=== PATIENT | male | born 1950 | race Hispanic/Latino ===

== ENCOUNTER 2024-04-29 08:20 | Observation (INO) | payer OTHER ==
[2024-04-25 12:24] VITALS: BP 115/59; PULSE 64; RESP 18; TEMP 97.4
[2024-04-25 12:34] LABS: BASOPHILS # (AUTO) 0.06 K/uL (0.00-0.20); BASOPHILS % (AUTO) 0.7 % (0.0-5.0); EOSINOPHILS # (AUTO) 0.28 K/uL (0.00-0.70); EOSINOPHILS % (AUTO) 3.4 % (0.0-8.0); HEMATOCRIT 36.6 % (42-54); IMMATURE GRANULOCYTE ABSOLUTE 0.05 K/uL (0-1); LYMPHOCYTES # (AUTO) 1.3 K/uL (1.0-4.8); MEAN CORPUSCULAR HEMOGLOBIN 30.3 pg (27.0-33.0); MEAN CORPUSCULAR HGB CONC 33.1 g/dL (32.0-36.0); MEAN CORPUSCULAR VOLUME 91.7 fL (79-99); MONOCYTES # (AUTO) 0.7 K/uL (0.1-1.0); MONOCYTES % (AUTO) 8.2 % (3.0-13.0); NEUTROPHILS % (AUTO) 72.1 % (40.0-77.0); PLATELET COUNT (AUTO) 243 K/uL (130-400); RED BLOOD CELL COUNT(AUTO) 3.99 MIL/uL (4.50-6.20); WHITE BLOOD COUNT (AUTO) 8.3 K/uL (4.8-10.8)
[2024-04-25 12:39] LABS: APPEARANCE,URINE CLEAR (CLEAR); BILIRUBIN,URINE NEGATIVE (NEGATIVE); COLOR,URINE LIGHT-YELLOW (YELLOW); GLUCOSE, URINE (UA) >=1000 mg/dL (NEGATIVE); KETONES,URINE NEGATIVE (NEGATIVE); LEUKOCYTE ESTERASE ,URINE NEGATIVE Leu/uL (NEGATIVE); NITRATE,URINE NEGATIVE (NEGATIVE); OCCULT BLOOD,URINE NEGATIVE (NEGATIVE); PH,URINE 5.5 (5.0-8.0); PROTEIN,URINE NEGATIVE (NEGATIVE); UROBILINOGEN,URINE 0.2 mg/dL (0.2-1.0)
[2024-04-25 12:40] LABS: ADD UA MICROSCOPIC YES
[2024-04-25 12:46] LABS: ALBUMIN 3.5 g/dL (3.5-5.0); CREATININE 1.8 mg/dL (0.5-1.3); POTASSIUM 4.3 mmol/L (3.5-5.1); RBC,URINE 0-1 /HPF (0-1); WBC,URINE 0-1 /HPF (0-1)
[~2024-04-29] VITALS: Ht 165.1 cm; Wt 77.7 kg
[2024-04-29] VITALS (24 sets, daily range): BP systolic 121–141; BP diastolic 54–69; PULSE 56–78; RESP 16–20; TEMP 96.6–97.6
[~2024-04-29 08:20] MED LIST: ATEN50TA PO; ATOR40TA71 PO; CLOP75TA32 PO; ENAL-89 PO; FAMO20TA8 PO; FERS325 PO; GLIP10TA19 PO; Nephro-Vite PO; PIOG30TA70 PO; SEMA1PEN3 SQ; STEGLATRO PO; VIT D3 PO
[2024-04-29] MEDS: 0.9%NACL 1000ML 1,000 ML IV ONE (09:13)
[2024-04-29] MEDS: ceFAZolin SODIUM 2 GM VIAL ONE (09:13)
[2024-04-29] MEDS ORDERED: rocuRONium bROMide 10MG/1ML 5ML VL ONE ×2 (10:31→13:28)
[2024-04-29] MEDS ORDERED: FENTanyl CITRate PF 50 MCG/1 ML 2ML VIAL ONE (10:31)
[2024-04-29] MEDS ORDERED: proPOFol 10 MG/ML 20ML VIAL IV ONE (10:31)
[2024-04-29] MEDS ORDERED: LIDOCAINE HCL-MPF 2% 10ML AMP IJ ONE (10:31)
[2024-04-29] MEDS ORDERED: ROPivacaine 0.5% 5MG/ML 30ML ONE (10:33)
[2024-04-29] MEDS ORDERED: ketaMINE 50MG/ML SYRINGE 50 MG/ML DISP.SYRIN ONE (10:33)
--- NOTE | 2024-04-29 10:47 | EKG ---
[facility] Test Date: 2024-04-29 Test Time: 10:18:28 Pat Name: ASHLEY MENDOZA Department: [facility] Room: 401 Gender: M Fuse Spooler: [id number] : 1950 Requested By: JAIRON SHEPPARD Order Number: [id number] Reading MD: Jmibo Ortiz Measurements Intervals [place] Rate: 54 P: 43 AK: 144 QRS: -8 QRSD: 97 T: 123 QT: 450 QTc: 426 Interpretive Statements Sinus rhythm Abnrm T, consider ischemia, anterolateral lds No previous ECG available for comparison Electronically Signed On 04-29-2024 21:26:19 AUTOMATIC PRINT DEVELOPER by Jimbo Ortiz Please click the below link to view image of tracing.
[2024-04-29] MEDS: TRANEXAMIC ACID 1000MG/10ML ONE ×2 (11:45)
[2024-04-29] MEDS ORDERED: ondanSETRON 4MG INJ ONE (11:57)
[2024-04-29] MEDS ORDERED: dexaMETHasone SOD PHOSPHATE 10MG/ML 1ML VIAL ONE (11:58)
[2024-04-29] MEDS ORDERED: GLYCOPYRROLATE 0.2 MG/ML 5 ML VIAL ONE (12:01)
[2024-04-29] MEDS ORDERED: NEOSTIGMINE METHYLSULFATE 1MG/ML IV ONE (12:01)
[2024-04-29] MEDS ORDERED: ePHEDrine SULFate 50 MG/ML AMPULE ONE (12:03)
[2024-04-29] MEDS ORDERED: traMADol HCL 50 MG TABLET PO PRN (12:30)
[2024-04-29] MEDS ORDERED: PoTASSium chloRIDE 20MEQ/100ML 100 ML IV PRN (12:30)
[2024-04-29] MEDS ORDERED: CYCLOBENZAPRINE HCL 10 MG TABLET PO PRN (12:30)
[2024-04-29] MEDS ORDERED: PoTASSium chloRIDE 20MEQ ER 20 MEQ ERTAB PO PRN (12:30)
[2024-04-29] MEDS ORDERED: ondanSETRON 4MG INJ IVP PRN (12:30)
[2024-04-29] MEDS ORDERED: FE FUMARATE/FA/MV, MIN COMB#15 1 TAB PO PRN (12:30)
[2024-04-29] MEDS ORDERED: ketOROlac 15MG/ML VIAL (15MG/ML) IV SCH (12:30)
[2024-04-29] MEDS ORDERED: PoTASSium chl 10% ELIXIR 20MEQ 20 MEQ/15 ML UDCUP PO PRN (12:30)
[2024-04-29] MEDS ORDERED: CALCIUM CARB 500MG PO PRN (12:30)
--- NOTE | 2024-04-29 15:19 | OP ---
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 The patient was failing conservative management and was found on MRI to have a supraspinatus rotator cuff tear with atrophy of the muscles. After discussion the risk, benefits, and alternatives, the patient voluntarily agreed to undergo the aforem entioned procedure. DESCRIPTION OF PROCEDURE: Patient was properly identified in the preoperative holding area. Surgical site marking was verified and surgery consent reviewed. The patient was then taken to the operating room and placed in supine position on the OR table. After induction of general anesthesia, preoperative antibiotics were given, all bony prominences were well-padded as the patient was transitioned into beachchair positioning. The right upper extremity was then prepped and draped in usual sterile fashion. Surgical time out was done verifying correct surgery, side, site, and location to be performed. We then began the procedure by making approximately 12 cm long incision over the deltopectoral interval using a 10 blade. Hemostasis was performed using Bovie electrocautery. We then dissected through the subcutaneous tissues using the Metzenbaums to identify our deltopectoral interval. We then mobilized the cephalic vein laterally as we opened the interval. We then incised the clavipectoral fascia just lateral to the conjoined tendon and placed our retractor deep to this. We identified the long head of the biceps tendon and performed a tenotomy. We then began elevating the subscapularis off of its insertion on the humeral head using Bovie electrocautery. With external rotation we brought the humeral head into view and released the capsule at the inferior aspect of the head. We released a small portion of the pectoralis off of its insertion on the humerus to allow for better exposure. We then placed our retractors protecting soft tissue. At this point we began using the sounding instruments, hand reaming up to a size 16. We pinned the cutting guide off of the handle in 30 degrees of version and performed the humeral osteotomy. We then broached up to a size 14. The rongeur was used to clean up our cut. We placed a protective cap on the cut surface of the humerus and subluxated the humerus posteriorly. We then placed our retractors around the glenoid to provide adequate exposure of the glenoid. The labrum and long head biceps tendon were resected with Bovie electrocautery. We then used to the guide to insert our central guidepin ensuring we were far enough inferior on the glenoid face. Over the central guidepin we reamed with the all-in-one reamer for the central peg and the faceplate. We then used the retail gift card merchandising to clean up the remaining soft tissue and bone. We then thoroughly irrigated out the glenoid bone and impacted into position the glenoid baseplate. We then placed 1 compression screw and 3 locking screw in the baseplate. We noted using a freer elevator that the baseplate was appropriately seated. We elected to use a centered glenosphere. Glenosphere was then seated in standard fashion with the setscrew tightened. We then removed our retractors and dislocated the humerus once more. We remove the protective cap from the cut end of the humerus. With the stem in place, we judged the amount of space available for polyethylene and elected to decrease our stem size. We backed down to a size 12 x 32 allowing us to further sink the stem and elected to use a locking screw to stabilize. We used the saw to cut off the extra bone from sinking the stem and used the ronguer to clean up remaining bone. We then elected to trial with a size +3 polyethylene. With this in place, we reduced the humerus and noted good stable range of motion. We then dislocated the humerus and remove the trial components. We thoroughly irrigated out the bone. We seated the final stem implant, placed a locking screw through the jig, and trialed once more. The size +3 polyethylene was still appropriate so we opened the final polyethylene and implanted this in standard fashion. We then reduced the humerus once more and ensured appropriate range of motion and stability. We checked the position of the components under fluoroscopy and found him to be appropriate. We thoroughly irrigated out the wound. We then began loosely repairing the deltopectoral interval using #2 Ethibond. Subcutaneous tissue was approximated using 2-0 Vicryl. The skin was closed using a running subcuticular 3-0 Monocryl with Dermabond applied. An Optifoam dressing was applied once the Dermabond dried. The patient was then placed into a sling, awakened from anesthesia, and taken recovery room in stable condition. MURRAY MAGANA MD Apr 29, 2024 15:19
--- NOTE | 2024-04-29 16:23 | HMCIMG ---
SHOULDER LTD 1VW RT REASON: S/P SHOULDER SURGERY TECHNIQUE: Single AP view was performed. FINDINGS: There is a total reverse right shoulder joint prosthesis in place. There are surgical changes in the soft tissues. There is no evidence of complication. IMPRESSION: 1. Documentation of right total shoulder joint prosthesis placement.
[2024-04-29] MEDS: FAMOTIDINE 20MG VIAL IV ONE (17:36)
[2024-04-29] MEDS: acetaMINOPHEN 100 ML ONE (17:36)
[2024-04-29] MEDS: ceFAZolin SODIUM 1 GM VIAL IVP SCH (17:42)
[2024-04-29] MEDS: 0.9%NACL 1000ML 1,000 ML IV SCH (17:42)
[2024-04-29] MEDS: FERROUS SULFATE 325 MG TABLET.DR PO SCH (17:42)
[2024-04-29] MEDS: GABApentin 100 MG CAPSULE PO SCH (17:42)
[2024-04-29] MEDS: INSULIN humuLIN R 100 UNIT/ML 3ML SQ SCH (17:43)
[2024-04-29] MEDS: doCUSate SODIUM 100 MG CAP PO SCH (20:45)
[2024-04-30] VITALS (7 sets, daily range): BP systolic 129–144; BP diastolic 69–73; PULSE 67–71; RESP 18–22; TEMP 97.6–98.9; O2SAT 98–99
[2024-04-30 05:21] LABS: HEMATOCRIT 32.7 % (42-54); MEAN CORPUSCULAR HEMOGLOBIN 29.8 pg (27.0-33.0); MEAN CORPUSCULAR HGB CONC 32.4 g/dL (32.0-36.0); MEAN CORPUSCULAR VOLUME 91.9 fL (79-99); RED BLOOD CELL COUNT(AUTO) 3.56 MIL/uL (4.50-6.20); RED CELL DISTRIBUTION WIDTH 14.1 % (11.0-15.5); WHITE BLOOD COUNT (AUTO) 12.7 K/uL (4.8-10.8)
[2024-04-30 05:28] LABS: CREATININE 1.5 mg/dL (0.5-1.3); POTASSIUM 5.2 mmol/L (3.5-5.1)
[2024-04-30] MEDS: FAMOTIDINE 20MG TAB PO SCH (08:28)
[2024-04-30] MEDS: polyETHYLene GLYCol 3350 17 GM POWD.PACK PO SCH (08:28)
[2024-04-30] MEDS: ASPIRIN 325MG TAB PO SCH (08:29)
[2024-04-30] MEDS: GLIPIZIDE 10 MG PO SCH (08:29)
[2024-04-30] MEDS: PIOGLITAZONE 30MG TAB PO SCH (08:29)
[2024-04-30] MEDS: Vitamin B Complex/Vit C/Folic Acid PO SCH (08:30)
[2024-04-30] MEDS: atorVAStatin 40 MG TABLET PO SCH (08:30)
[2024-04-30] MEDS: HYDROcodone/APAP 5/325 1 TAB TABLET PO PRN (08:30)
[2024-04-30] MEDS: STEGLATRO 5 MG PO SCH (08:32)
--- NOTE | 2024-04-30 13:49 | HMCIMG ---
SHOULDER COMP 2+VWS RT REASON: RT reverse total shoulder arthroplasty TECHNIQUE: 6 surgical spot views were obtained. These document to right reverse total shoulder arthroplasty procedure. Fluoroscopy time was 8.7 seconds. IMPRESSION: 1. Documentation of right reverse total shoulder arthroplasty procedure.
--- NOTE | 2024-04-30 14:22 | NUR ---
[facility] CM MET WITH PT THIS MORNING, ASSESSMENT DONE. PATIENT IS INDEPENDENT PRIOR TO SURGERY, LIVES AT HOME ALONE. HAS OWN GLUCOMETER, TAKES PO MED FOR DM, USES [facility] MAIL RX, MEDS GETS DELIVERED AT HOME. FEELS SAFE TO GO BACK HOME, STILL DRIVE, FAMILY ABLE TO ASSIST WITH TRANSPORTATION AND NEEDS NECESSARY. DISCUSSED MD RECOMMENDATIONS FOR HOME W/HH, PT AGREEABLE, CONSENT SIGNED JARED FOR [facility]. [facility] HOME W/HH ONCE APPROVED. SENT ORDER, CLINICALS, PT TO [facility] VIA SECURE FAX AND EMAIL, CONFIRMATION RECEIVED. PENDING REP RESPONSE. PT PENDING APPROVAL. PRIMARY NURSE CRISTINA LESLIE. DR MAGANA UPDATED. CM TO CONTINUE TO FOLLOW UP. Addendum: 04/30/24 at 1428 by JEWELL ZAFAR LVN Amended: Links added.
--- NOTE | 2024-04-30 17:19 | PN ---
POD 1 Reports pain tolerable. States feeling better today. [place] PO. Passing gas. Reports voiding on his own. States he will have help at home tomorrow morning. VSS, AF A&Ox3 lying in bed in NAD RUE -dressing c/d/i -sling in place -SILT M/U/R -motor intact AIN/PIN/U nerves DCP is for [facility] OT A/P: 74 yo M POD 1 s/p R reverse TSA and acute blood loss anemia exacerbating chronic anemia -plan for discharge in AM if NAEON Vitals/Labs Vital Signs Date Time Temp Pulse Resp B/P (MAP) Pulse Ox O2 Delivery O2 Flow Rate FiO2 04/30/24 16:29 99.0 68 22 129/69 99 04/30/24 08:00 Room Air* 0 21 Laboratory Tests 04/30/24 04:46 Medications Current Medications Cefazolin Sodium 2 gm STK-MED ONCE .ROUTE Last administered on 04/29/24at 12:10; Start 04/29/24 at 08:31; Stop 04/29/24 at 08:32; Status DC Sodium Chloride 1,000 ml @ As Directed STK-MED ONCE IV Last administered on 04/29/24at 09:13; Start 04/29/24 at 08:31; Stop 04/29/24 at 08:32; Status DC Acetaminophen 100 ml @ As Directed STK-MED ONCE .ROUTE; Start 04/29/24 at 10:26; Stop 04/29/24 at 10:26; Status DC Famotidine 20 mg STK-MED ONCE IV; Start 04/29/24 at 10:26; Stop 04/29/24 at 10:27; Status DC Lidocaine HCl 1 ml STK-MED ONCE IJ; Start 04/29/24 at 10:31; Stop 04/29/24 at 10:31; Status DC Propofol 200 mg STK-MED ONCE IV; Start 04/29/24 at 10:31; Stop 04/29/24 at 10:31; Status DC Rocuronium Fyffe 50 mg STK-MED ONCE .ROUTE; Start 04/29/24 at 10:31; Stop 04/29/24 at 10:31; Status DC Fentanyl Citrate 100 mcg STK-MED ONCE .ROUTE; Start 04/29/24 at 10:31; Stop 04/29/24 at 10:32; Status DC Ropivacaine 150 mg STK-MED ONCE .ROUTE; Start 04/29/24 at 10:33; Stop 04/29/24 at 10:34; Status DC Ketamine HCl 50 mg STK-MED ONCE .ROUTE; Start 04/29/24 at 10:33; Stop 04/29/24 at 10:34; Status DC Tranexamic Acid 1,000 mg STK-MED ONCE .ROUTE Last administered on 04/29/24at 11:45; Start 04/29/24 at 10:55; Stop 04/29/24 at 11:00; Status DC Tranexamic Acid 1,000 mg STK-MED ONCE .ROUTE; Start 04/29/24 at 10:55; Stop 04/29/24 at 11:00; Status DC Ondansetron HCl 4 mg STK-MED ONCE .ROUTE; Start 04/29/24 at 11:57; Stop 04/29/24 at 11:58; Status DC Dexamethasone Sodium Phosphate 10 mg STK-MED ONCE .ROUTE; Start 04/29/24 at 11:58; Stop 04/29/24 at 11:58; Status DC Glycopyrrolate 1 mg STK-MED ONCE .ROUTE; Start 04/29/24 at 12:01; Stop 04/29/24 at 12:02; Status DC Neostigmine Methylsulfate 10 mg STK-MED ONCE IV; Start 04/29/24 at 12:01; Stop 04/29/24 at 12:02; Status DC Ephedrine Sulfate 50 mg STK-MED ONCE .ROUTE; Start 04/29/24 at 12:03; Stop 04/29/24 at 12:04; Status DC Sodium Chloride 1,000 ml @ 100 mls/hr Q10H IV Last administered on 04/30/24at 05:03; Start 04/29/24 at 12:30; Stop 04/30/24 at 12:29; Status DC Polyethylene Glycol 17 gm DAILY PO Last administered on 04/30/24at 08:28; Start 04/30/24 at 09:00; Stop 05/30/24 at 08:59 Bisacodyl 10 mg DAILY PRN RC; Start 05/02/24 at 12:30; Stop 06/01/24 at 12:29 Aspirin 325 mg BID PO Last administered on 04/30/24at 08:29; Start 04/30/24 at 09:00; Stop 05/30/24 at 08:59 Multivitamins/Iron 1 tab DAILY PRN PO; Start 04/29/24 at 12:30; Stop 05/29/24 at 12:29 Ondansetron HCl 4 mg Q6H PRN IVP; Start 04/29/24 at 12:30; Stop 05/29/24 at 12:29 Calcium Carbonate 500 mg Q12H PRN PO; Start 04/29/24 at 12:30; Stop 05/29/24 at 12:29 Insulin Human Regular INSULIN SLIDING SCAL... ACHS SQ Last administered on 04/30/24at 11:36; Start 04/29/24 at 16:30; Stop 05/29/24 at 16:29 Cefazolin Sodium 1 gm Q12H IVP Last administered on 04/30/24at 05:01; Start 04/29/24 at 17:30; Stop 04/30/24 at 05:31; Status DC Gabapentin 100 mg TID PO Last administered on 04/30/24at 14:28; Start 04/29/24 at 14:00; Stop 05/29/24 at 13:59 Cyclobenzaprine HCl 5 mg Q8H PRN PO; Start 04/29/24 at 12:30; Stop 05/29/24 at 12:29 Docusate Sodium 100 mg BID PO Last administered on 04/30/24at 08:28; Start 04/29/24 at 21:00; Stop 05/29/24 at 20:59 Ketorolac Tromethamine 15 mg Q8H IV; Start 04/29/24 at 12:30; Stop 04/29/24 at 12:46; Status DC Potassium Chloride 100 ml @ 100 mls/hr AD PRN IV; Start 04/29/24 at 12:30; Stop 05/29/24 at 12:29 Potassium Chloride 20 meq AD PRN PO; Start 04/29/24 at 12:30; Stop 05/29/24 at 12:29 Potassium Chloride 20 meq AD PRN PO; Start 04/29/24 at 12:30; Stop 05/29/24 at 12:29 Tramadol HCl 50 mg Q6H PRN PO; Start 04/29/24 at 12:30; Stop 05/04/24 at 12:29 Acetaminophen/ Hydrocodone Bitart Q4H PRN PO Last administered on 04/30/24at 08:30; Start 04/29/24 at 12:30; Stop 05/04/24 at 12:29 Atorvastatin Calcium 40 mg DAILY PO Last administered on 04/30/24at 08:30; Start 04/30/24 at 09:00; Stop 05/30/24 at 08:59 Famotidine 20 mg DAILY PO Last administered on 04/30/24at 08:28; Start 04/30/24 at 09:00; Stop 05/30/24 at 08:59 Glipizide 10 mg DAILY PO Last administered on 04/30/24at 08:29; Start 04/30/24 at 09:00; Stop 05/30/24 at 08:59 Pioglitazone HCl 30 mg DAILY PO Last administered on 04/30/24at 08:29; Start 04/30/24 at 09:00; Stop 05/30/24 at 08:59 Ferrous Sulfate 325 mg QMOWEFR PO Last administered on 04/29/24at 17:42; Start 04/29/24 at 13:00; Stop 05/29/24 at 12:59 Home Med Semaglutide (Ozempic) 1 MG QWE SQ; Start 05/01/24 at 09:00; Stop 05/31/24 at 08:59 Vitamin B Complex/ Vit C/Folic Acid 1 cap DAILY PO Last administered on 04/30/24at 08:30; Start 04/30/24 at 09:00; Stop 05/30/24 at 08:59 Home Med Steglatro 5 MG DAILY PO; Start 04/30/24 at 09:00; Stop 05/30/24 at 08:59 Home Med VITAMIN D3 50 MCG DAILY PO; Start 04/30/24 at 09:00; Stop 05/30/24 at 08:59 Rocuronium Fyffe 50 mg STK-MED ONCE .ROUTE; Start 04/29/24 at 13:28; Stop 04/29/24 at 13:28; Status MURRAY ROGERS MD Apr 30, 2024 17:19
[2024-05-01 00:17] VITALS: BP 120/64; PULSE 77; RESP 18; TEMP 98.2
[2024-05-01 03:42] VITALS: BP 127/75; PULSE 74; RESP 18; TEMP 98.1
[2024-05-01 08:00] VITALS: BP 130/71; PULSE 85; RESP 18; TEMP 99.1; O2SAT 94
[2024-05-01] MEDS: Semaglutide (Ozempic) 1 MG SQ SCH (09:00)
[2024-05-01 12:00] VITALS: BP 121/53; PULSE 80; RESP 18; TEMP 98.4
[2024-05-01] MEDS ORDERED: HYDR-4060 PO (12:34)
[2024-05-01] MEDS ORDERED: CYCL-309 PO (12:34)
[2024-05-01] MEDS ORDERED: GABA100C PO (12:34)
--- NOTE | 2024-05-01 12:35 | DS ---
Discharge Summary Assessment/Plan: ASSESSMENT: [ ] PLAN: [ ] Discharge Instructions: Patient Discharge Instructions Follow-up appointment: Call Ortho care to schedule follow-up in 2-3 weeks. Medications: Resume home medications. Prescriptions have been sent to the pharmacy: *Alcolu 5/325mg 1 tab every 6 hours as needed for severe pain. (please call for refills) Cyclobenzaprine 5mg 1 tab every 8 hours as needed for muscle spasm pain. Gabapentin 100mg 1 tab every 8 hours (may discontinue if drowsy). Colace 100mg 1 tab orally twice a day as needed for constipation. Diet: Resume normal diet. Activity: Begin working with Home Health physical therapy. Perform daily finger, wrist, and elbow range of motion exercises. This will help with swelling. Daily gentle passive shoulder range of motion - pendulum exercises. Continue with sling/shoulder immobilizer until follow up. Lift less than 2 pounds in the right upper extremity for the next [address] for the next 24 [address] Ambulate with care, you may feel dizzy. Have someone stay with you tonight. Do not operate heavy machinery for the next 24 hours. Avoid excessive bending or squatting. Do not smoke, you may fall asleep. Ice for pain and swelling. Wound care: You may remove the shoulder dressing in 2 days. After removing the dressings, showers allowing soap and water to run over the wounds are okay. Do not submerge underwater in a bathtub or swimming pool. Do not use ointments on the wounds. Do not use peroxide on the wounds. Do not use Betadine. Call your doctor if: Severe pain not easily relieved. Fever greater than 101 F. Difficulty breathing. Excessive dizziness. Rash breaks out. Excessive nausea or vomiting. Any other medical problems of your concern. Foul-smelling or unusual drainage to incision/dressing. Excessive bleeding to incision/dressing. Numbness/tingling to affected extremity. Unable to pass urine for more than 6 to 8 hours after discharge. Redness/swelling to the incision site. Home Medications: Active Scripts Hydrocodone/Acetaminophen (Hydrocodon-Acetaminophen 5-325) 5 Mg-325 Mg Tablet, 1 TAB PO Q6HPRN PRN for MODERATE/SEVERE PAIN LEVEL, #28 TAB 0 Refills Prov:MURRAY MAGANA MD 05/01/24 Reported Medications Ferrous Sulfate (Ferrous Sulfate) 325 Mg (65 Mg Iron) Ectab, 1 TAB PO MWF for 30 Days, #60 TAB 0 Refills 04/25/24 [Vit D3] No Conflict Check, 50 MCG PO DAILY 04/25/24 [Steglatro] No Conflict Check, 5 MG PO DAILY 04/25/24 Atorvastatin Calcium (Atorvastatin Calcium) 40 Mg Tablet, 1 TAB PO DAILY 04/25/24 Famotidine (Famotidine) 20 Mg Tablet, 1 TAB PO DAILY 04/25/24 Glipizide (Glipizide ER) 10 Mg Tab.er.24, 1 TAB PO DAILY 04/25/24 Pioglitazone HCl (Pioglitazone HCl) 30 Mg Tablet, 1 TAB PO DAILY 04/25/24 Atenolol (Atenolol) 50 Mg Tablet, 1 TAB PO DAILY 04/25/24 [Nephro-Gina] No Conflict Check, 0.8 MG PO DAILY 04/25/24 Clopidogrel Bisulfate (Clopidogrel) 75 Mg Tablet, 1 TAB PO DAILY 04/25/24 Semaglutide (Ozempic) 1 Mg/0.75 Ml (4 Mg/3 Ml) Pen.injctr, 1 MG SQ WED 04/25/24 Enalapril Maleate (Enalapril Maleate) 10 Mg Tablet, 1 TAB PO BID 04/25/24 MURRAY MAGANA MD May 01, 2024 12:35
--- NOTE | 2024-05-01 13:03 | NUR ---
CM NOTE CALL MADE TO DR MAGANA AND ADVISED THAT THERE IS NO APPROVAL FOR HOME HEALTH, [facility] IS NOT IN NETWORK. ADVISED OF POSSIBLE OPTIONS LIKE OTHER HH, BUT PER DR MAGANA GAVE ORDER FOR PT TO CALL AND FOLLW-UP AT HER OFFICE FOR AN APPOINTMENT WITH HER IN ONE WEEK. SO THAT SHE CAN SETUP THE OP PT AT HER OFFICE. UPDATED PT AND SPOUSE ON ALL ABOVE AND VERBALIZE UNDERSTANDING. PRIMARY NURSE UPDATED AND REQUESTED SHE REINFORE ABOVE TO PT . Addendum: 05/01/24 at 1309 by ТАТЬЯНА LEE CM INSTRUCTED PT AND SPOUSE TO CALL BY PHONE TOMORROW TO DR MAGANA'S OFFICE FOR THAT APPOINTMENT IN A WEEK. VERBALIZE UNDERSTANDING.
--- NOTE | 2024-05-01 15:00 | NUR ---
PATIENT D/C HOME. NO S/S OF DISTRESS NOTED. PATIENT MADE AWARE TO CONTACT DR MAGANA OFFICE ON 05/06/24 TO MAKE F/U APPT AND TO HAVE HOME HEALTH SET UP. PATIENT VERBALIZED UNDERSTANDING. MEDICATIONS REVIEWED WITH PATIENT WELL. IV REMOVED. PATIENT WHEELED DOWNSTAIRS AND TRANSFERRED TO PERSONAL VEHICLE
[2024-05-02] MEDS ORDERED: BisaCODYL 10 MG SUPP.RECT RC PRN (12:30)
== END 2024-05-01 15:00 | disposition home or self-care (01) ==
LOC: DAH 08:20 → DAHIP 08:21 → 4AH 16:15
PROVIDERS: ADMIT Student in an Organized Health Care Education/Training Program; ATTEND Student in an Organized Health Care Education/Training Program
DX: M75.101 Unspecified rotator cuff tear or rupture of right shoulder, not specified as traumatic (principal); M62.81 Muscle weakness (generalized); M75.01 Adhesive capsulitis of right shoulder; E11.9 Type 2 diabetes mellitus without complications; E78.5 Hyperlipidemia, unspecified; I10 Essential (primary) hypertension; I25.10 Atherosclerotic heart disease of native coronary artery without angina pectoris; I25.2 Old myocardial infarction; Z98.890 Other specified postprocedural states; Z79.899 Other long term (current) drug therapy
CPT/HCPCS: 82040; 80048 ×2; 85025; 87086; 84134; 86140; 81001; 36415 ×2; 87641; 73020; 64415; 23472; 96365; 82948 ×9; 73030; 97161; 97116 ×5; 93005; 96366; 85027; 97530 ×4; J1815 ×7; G0378 ×46; A4223 ×2; A4600; A4663; J7030 ×2; J3490 ×8; J3010; J0690 ×3; J1100; J2704; J2405; J2710; J2795; A4649; C1776; A6254; A5120; A4215 ×2; A4213; A4222; A4221; A4216